=== PATIENT | female | born 1985 | race Caucasian/White ===

== ENCOUNTER 2018-08-24 06:32 | Emergency (ER) | payer OTHER ==
[2018-08-24] MEDS: DIPHENHYDRAMINE 50 MG INJ IV (07:19)
[2018-08-24] MEDS: ONDANSETRON 4 MG INJ IV (07:19)
[2018-08-24] MEDS: SOD CHLORIDE 0.9% 1,000 ML IV (07:19)
[2018-08-24] MEDS: KETOROLAC 30 MG INJ IV (07:20)
[2018-08-24 07:48] LABS: ADD UMIC YES; UR ASCORBIC ACID 20 mg/dL (NEGATIVE); UR BILIRUBIN (Dip) 1+ mg/dL (NEGATIVE); UR BLOOD (Dip) 2+ mg/dL (NEGATIVE); UR CLARITY CLEAR (CLEAR); UR COLOR YELLOW (YELLOW); UR GLUCOSE (Dip) NEGATIVE (NEGATIVE); UR KETONES (Dip) NEGATIVE (NEGATIVE); UR LEUKOCYTE ESTERASE (Dip) NEGATIVE Leu/ul (NEGATIVE); UR MUCUS MANY /HPF (NONE SEEN); UR NITRITE (Dip) NEGATIVE (NEGATIVE); UR RBC 15 /HPF (0-5); UR SPECIFIC GRAVITY (Dip) 1.049 (1.003-1.030); UR SQUAMOUS EPITHELIAL CELL FEW /HPF (FEW); UR TOTAL PROTEIN (Dip) 1+ mg/dl (NEGATIVE); UR UROBILINOGEN (Dip) NEGATIVE (NEGATIVE); UR WBC 1 /HPF (0-5)
== END 2018-08-24 08:13 | disposition home or self-care (01) ==
LOC: FTE 06:32
DX: R51 Headache (principal)
CPT/HCPCS: 81001; 81025; 96374; 96375; 99284-25